=== PATIENT | male | born 1975 | race Hispanic/Latino ===

== ENCOUNTER 2017-11-23 10:11 | Emergency (ER) | payer BC, OTHER ==
[2017-11-23] MEDS ORDERED: ORPHENADRINE CITRATE 30 MG/ML ML ONE (10:25)
[2017-11-23] MEDS ORDERED: KETOROLAC TROMETHAMINE 30MG/ML ONE (10:26)
== END 2017-11-23 11:48 | disposition home or self-care (01) ==
LOC: EDH 10:11
DX: S13.8XXA Sprain of joints and ligaments of other parts of neck, initial encounter (principal); Z87.891 Personal history of nicotine dependence; Z98.890 Other specified postprocedural states; X58.XXXA Exposure to other specified factors, initial encounter; Y93.89 Activity, other specified; Y92.39 Other specified sports and athletic area as the place of occurrence of the external cause; Y99.8 Other external cause status
CPT/HCPCS: 72040; 99284; J1885; J2360